=== PATIENT | male | born 1980 | race Hispanic/Latino ===

== ENCOUNTER → 2019-10-22 | Day surgery (SDC) | payer BC, OTHER ==
[2019-10-17 15:08] LABS: ANION GAP 12.9 mmol/L (8-16); BLOOD UREA NITROGEN 14 mg/dL (7-26); BUN/CREATININE RATIO 15 (6-25); CALCIUM 9.1 mg/dL (8.4-10.2); CARBON DIOXIDE 25 mmol/L (22-29); CHLORIDE 104 mmol/L (98-107); CREATININE, SERUM 0.92 mg/dL (0.72-1.25); EST GLOMERULAR FILTRATION RATE > 60 ML/MIN (60-); GLUCOSE 123 mg/dL (74-118); POTASSIUM 3.9 mmol/L (3.5-5.1); SODIUM 138 mmol/L (136-145)
[~2019-10-22] MED LIST: ACETAMINOPHEN/CODEINE 300MG - 30MG TAB ONE; BENAZEPRIL-HCT1 EAC3 PO; BUPIVACAINE HCL 0.5% INJ 30 ML VIAL INJ ONE; CEFAZOLIN SOD 1 GM/NS 50ML 100 ML IV ONE; KETOROLAC TROMETHAMINE 30 MG/ML VIAL ONE; LIDOCAINE HCL 2% LOCAL INJ 5 ML SDV VIAL INJ ONE; METOPROLOL SUCC50 MG PO; ONDANSETRON HCL INJ 2MG/ML 2ML 2 MG/ML VIAL ONE; PROPOFOL IV EMULSION 10 MG/ML 20 ML VIAL ONE; SEVOFLURANE INHAL SOLN 250 ML PEN BTL ONE; SOMA350 MG PO; SUBOXONE 8 MG-1 EAC2 SL
[2019-10-22 10:20] VITALS: BP 134/60
--- NOTE | 2019-10-23 15:04 | Operative Report ---
DATE OF PROCEDURE: 10/22/2019 SURGEON: Getachew Guillen MD PREOPERATIVE DIAGNOSES: 1. Right knee lateral meniscus tear. 2. Right knee degenerative joint disease of the knee. POSTOPERATIVE DIAGNOSES: 1. Right knee lateral meniscus tear. 2. Right knee degenerative joint disease of the knee. 3. Right knee medial external plica. OPERATIONS/PROCEDURES PERFORMED: The patient underwent right knee examination under anesthesia, right knee arthroscopy, right knee partial lateral meniscectomy, right knee chondroplasty of the trochlea, the medial tibial plateau, and the lateral tibial plateau, as well as a resection of a medial shelf plica. MEMORIAL MARKER DESIGNER: There was no legal document assistant. ANESTHESIA: General endotracheal intubation anesthesia. IV FLUIDS: Per the anesthesia record. BRIEF DESCRIPTION OF THE PATIENT'S OPERATIVE PROCEDURE: Mr. Kenney was taken to the operating room and placed in supine position on the operating table. Following induction of general anesthesia as well as endotracheal intubation, the patient's right lower extremity was examined under anesthesia. He was found to have a mild effusion within the knee joint, but otherwise ligamentously stable knee. The patient's lower extremity was prepped and draped in standard fashion. A two-port technique used to provide this patient arthroscopic evaluation of the knee joint. Examination of suprapatellar pouch and medial lateral gutters found no evidence of loose bodies. 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 There was also a large inflamed medial shelf plica interdigitating between the patella and trochlea. The scope was advanced to the medial compartment and chondromalacia of the medial tibial plateau was encountered. The meniscus was intact. The shaver was placed in the medial compartment. A chondroplasty of the medial tibial plateau was performed at this time. Scope was advanced to the intercondylar notch. The anterior cruciate ligament was identified and found to be intact. There was also portion of the anterolateral meniscus extruded into the intercondylar notch. Scope was then advanced into the lateral compartment and the extruded portion of the meniscus was reduced into the lateral compartment, and there was extensive tearing of the anterior and middle portions of the lateral meniscus. A combination of biting forceps and a motorized shaver used to resect the torn portion of meniscus. There was also chondromalacia of the lateral tibial plateau. A chondroplasty of this surface was performed. Scope was then advanced to the suprapatellar pouch and a chondroplasty of the trochlea was performed. The medial shelf plica was resected. The knee was then deflated with sterile normal saline. The portal sites were closed using 4-0 nylon suture. The portal sites as well as the knee itself were injected with 0.5% Marcaine with epinephrine. Sterile dressings were applied. The patient was then awakened and taken to Postanesthesia Care Unit in stable condition. MD MARISSA Noyola/NICK /[id number]
== END | disposition home or self-care (01) ==
LOC: OR 07:35
PROVIDERS: ATTEND Specialist
DX: S83.281A Other tear of lateral meniscus, current injury, right knee, initial encounter (principal); M17.11 Unilateral primary osteoarthritis, right knee; M67.51 Plica syndrome, right knee; M94.261 Chondromalacia, right knee; Z98.84 Bariatric surgery status; R06.83 Snoring; I10 Essential (primary) hypertension; E66.01 Morbid (severe) obesity due to excess calories; X58.XXXA Exposure to other specified factors, initial encounter; Z01.810 Encounter for preprocedural cardiovascular examination; Z01.812 Encounter for preprocedural laboratory examination; Z11.59 Encounter for screening for other viral diseases; Z87.891 Personal history of nicotine dependence
CPT/HCPCS: 29881; 36415; 80048; 93005; J0690; J1885; J2001; J2405; J2704; U0002